=== PATIENT | female | born 1950 | race Two or more races ===

== ENCOUNTER 2022-12-08 06:06 | Inpatient (IN) | payer OTHER ==
[~2022-12-08] VITALS: Ht 154.9 cm; Wt 90.7 kg
[~2022-12-08 06:06] MED LIST: ALEN35TA18 PO; ASPI1TAB20 PO; ATOR20TA50 PO; BACL20TA PO; BENA10TA14 PO; CHOL200031 PO; DOCU100T15 PO; GABA300C10 PO; HYDR-4188 OR; HYDR1TAB97 PO; LEV50T PO; MELO1TAB56 PO; OMEG1CAP31 PO
[2022-12-08] MEDS ORDERED: VANCOMYCIN HCL 1000 MG VL ONE (06:36)
[2022-12-08] MEDS ORDERED: BUPIVACAINE W/ EPINEPH 0.25% INJ 50ML MDV ONE (06:39)
[2022-12-08] MEDS ORDERED: KETOROLAC TROMETH 30 MG/ML 1ML VIAL ONE (06:40)
[2022-12-08] MEDS ORDERED: SUCCINYLCHOLINE CHLORIDE 20 MG/ML 10ML VIAL IV ONE (06:48)
[2022-12-08] MEDS ORDERED: ROCURONIUM 10MG/ML 10ML VIAL IV ONE ×2 (06:49→09:32)
[2022-12-08] MEDS ORDERED: NEOSTIGMINE 1 MG/ML INJ (10mg/10ML VIAL) ONE (06:54)
[2022-12-08] MEDS ORDERED: LIDOCAINE 2% JELLY 11ml (GLYDO) ONE (06:54)
[2022-12-08] MEDS ORDERED: HYDROmorphone HCL 2 MG/ML VL/or syr ONE ×2 (06:54→12:02)
[2022-12-08] MEDS ORDERED: MIDAZOLAM HCL 2MG/2ML 2ml VIAL (1mg/ml) ONE ×2 (06:54→07:21)
[2022-12-08] MEDS ORDERED: DexAMETHasone SOD PHOS 10MG/1ML VIAL INJ ONE (06:54)
[2022-12-08] MEDS ORDERED: SODIUM CHLORIDE LOCK 10 ML ONE (06:54)
[2022-12-08] MEDS ORDERED: fentaNYL CITRATE 100 MCG/2 ML VL ONE (06:54)
[2022-12-08] MEDS ORDERED: ONDANSETRON HCL 4 MG/2 ML VIAL ONE (06:54)
[2022-12-08] MEDS ORDERED: GLYCOPYRROLATE 0.2 MG/ML 1ML VIAL ONE (06:54)
[2022-12-08] MEDS ORDERED: TRANEXAMIC ACID 20 ML ONE (06:56)
[2022-12-08] MEDS ORDERED: HYDROmorphone HCL 2 MG/ML VL/or syr IV PRN ×3 (07:15→10:30)
[2022-12-08] MEDS ORDERED: MORPHINE SULFATE INJ 2 MG/ml SYRG IV PRN (07:15)
[2022-12-08] MEDS ORDERED: METOCLOPRAMIDE HCL 5MG/ml INJ 2ml VIAL IV PRN (07:15)
[2022-12-08] MEDS: ceFAZolin 1GM/50ML 100 ML IV ONE ×2 (07:15→07:20)
[2022-12-08] MEDS ORDERED: MORPHINE SULF PF 5 MG/10 ML VIAL ONE (07:21)
[2022-12-08] MEDS ORDERED: NITROGLYCERIN 0.4 MG SL TAB SL PRN (10:30)
[2022-12-08 11:40] LABS: Calcium 8.6 mg/dL (8.5-10.1); Potassium 4.2 mmol/L (3.5-5.1)
[2022-12-08 11:42] LABS: BUN/Creatinine Ratio 12.7 (10.0-20.0)
[2022-12-08] MEDS: LACTATED RINGER'S 1,000 ML IV SCH ×2 (14:14→18:43)
[2022-12-08 14:22] VITALS: BP 128/60
[2022-12-08] MEDS: ceFAZolin 1GM/50ML 50 ML IV SCH ×2 (14:28→18:39)
[2022-12-08] MEDS: GABAPENTIN 300 MG CAP PO SCH ×2 (14:46→22:46)
[2022-12-08 17:00] VITALS: BP 134/66
[2022-12-08] MEDS: ONDANSETRON HCL 4 MG/2 ML VIAL IV PRN (17:40)
[2022-12-08 22:00] VITALS: BP 129/59
[2022-12-08] MEDS ORDERED: ATORVASTATIN 20 MG TAB PO SCH (22:00)
[2022-12-08] MEDS ORDERED: PATIENTS OWN MEDICATION (Baclofen 10 MG) PO SCH (22:00)
[2022-12-08] MEDS: BACLOFEN 10 MG TAB PO SCH (22:45)
[2022-12-08] MEDS: DOCUSATE SOD 100 MG CAP PO SCH (22:45)
[2022-12-08] MEDS: BENAZEPRIL HCL 10 MG TAB PO SCH (22:46)
[2022-12-09] MEDS: ceFAZolin 1GM/50ML 50 ML IV SCH (00:52)
[2022-12-09] MEDS: ONDANSETRON HCL 4 MG/2 ML VIAL IV PRN ×2 (00:53→09:20)
[2022-12-09] MEDS: HYDROcodone-ACET 5/325MG TAB PO PRN ×2 (00:53→09:21)
[2022-12-09 05:00] VITALS: BP_SYST 113; BP_SYST 151; BP_DIAS 45; BP_DIAS 73
[2022-12-09 06:10] LABS: Potassium 4.8 mmol/L (3.5-5.1)
[2022-12-09 06:18] LABS: Albumin 3.3 g/dL (3.4-5.0); BUN/Creatinine Ratio 16.4 (10.0-20.0); Bilirubin, Total 0.7 mg/dL (0.2-1.0); Calcium 8.6 mg/dL (8.5-10.1); Total Protein 6.1 g/dL (6.4-8.2)
[2022-12-09] MEDS: LACTATED RINGER'S 1,000 ML IV SCH (06:30)
[2022-12-09] MEDS: GABAPENTIN 300 MG CAP PO SCH (06:42)
[2022-12-09] MEDS: ASPirin-EC 81 mg tab PO SCH ×2 (07:58→09:21)
[2022-12-09 09:18] VITALS: BP 131/56
[2022-12-09] MEDS: DOCUSATE SOD 100 MG CAP PO SCH (09:21)
[2022-12-09] MEDS: BACLOFEN 10 MG TAB PO SCH (09:21)
[2022-12-09] MEDS: BENAZEPRIL HCL 10 MG TAB PO SCH (09:22)
[2022-12-09] MEDS ORDERED: LEVOTHYROXINE SODIUM 50 MCG TAB PO SCH (10:00)
[2022-12-09] MEDS ORDERED: CHOLECALCIFEROL (VITD3) 2,000 UNIT CAP/TAB PO SCH (10:00)
[2022-12-09] MEDS ORDERED: hydrOXYchloroQUINE SULFATE 200 MG TAB PO SCH (10:00)
[2022-12-09 11:35] VITALS: BP 131/56
[2022-12-10 13:46] LABS: Hepatitis C Antibody Negative (Negative)
[2022-12-12] MEDS ORDERED: ALENDRONATE 35 MG PO SCH (11:00)
== END 2022-12-09 13:48 | disposition home or self-care (01) | DRG 483 ==
LOC: SUR 06:06 → OVERFLOW 10:37 → WEST WING 12:33
PROVIDERS: ADMIT Orthopaedic Surgery Sports Medicine; ATTEND Orthopaedic Surgery Sports Medicine
PROC: 0RRJ00Z Replacement of Right Shoulder Joint with Reverse Ball and Socket Synthetic Substitute, Open Approach (ICD-10-PCS; principal; 2022-12-08 07:25)
DX: M19.011 Primary osteoarthritis, right shoulder (principal); M75.101 Unspecified rotator cuff tear or rupture of right shoulder, not specified as traumatic; Z88.8 Allergy status to other drugs, medicaments and biological substances
CPT/HCPCS: 36415; 73020; 76000; 80048; 80053; 86803; 86850; 86900; 86901; 87340; G0378; J0330; J0690; J1100; J1885; J2250; J2405